=== PATIENT | male | born 1945 | race Caucasian/White ===

== ENCOUNTER → 2017-01-30 | Outpatient (CLI) | payer OTHER ==
[~2017-01-30] MED LIST: AMLO5TAB2 PO; GABA300C10 PO; HYDR25TA6 PO; LOSA50TA6 PO; OXYC-223 PO; OXYC1TAB7 PO; SERT50TA5 PO; TIOT18CA INH; TRAM50TA2 PO
== END | disposition home or self-care (01) ==
LOC: PETCFH 08:08
PROVIDERS: ATTEND Family Medicine
DX: R91.1 Solitary pulmonary nodule (principal)
CPT/HCPCS: 78815; A9552

== ENCOUNTER 2017-05-08 08:52 | Inpatient (IN) | payer OTHER ==
[2017-05-06 09:43] VITALS: BP 157/76
[~2017-05-08] VITALS: Ht 175.3 cm; Wt 70.5 kg
[~2017-05-08 08:52] MED LIST changes: +BUPIVACAINE/PF-EPI 0.5% 1:200K ONE; +CARV6.2512 PO; +CETI10TA18 PO; +CYAN1TAB29 PO
[2017-05-08] MEDS ORDERED: LIDOCAINE 1%, 2ML ONE (09:19)
[2017-05-08] MEDS ORDERED: LACTATED RINGERS 1,000 ML IV SCH (09:37)
[2017-05-08] MEDS ORDERED: LIDOCAINE 1%, 2ML SQ PRN (10:00)
[2017-05-08] MEDS ORDERED: MIDAZOLAM 1 MG/ML, 2ML ONE (10:04)
[2017-05-08] MEDS ORDERED: FENTANYL PF 250 MCG/5ML ONE (10:05)
[2017-05-08] MEDS ORDERED: SUGAMMADEX 200 MG/2 ML IVPush ONE (12:00)
[2017-05-08] MEDS ORDERED: LORazepam 2 MG/ML, 1ML IVPush PRN (13:00)
[2017-05-08] MEDS ORDERED: hydrALAzine 20 MG/ML, 1ML IVPush PRN (13:00)
[2017-05-08] MEDS ORDERED: METOCLOPRAMIDE 5 MG/ML, 2ML IV PRN (13:00)
[2017-05-08] MEDS ORDERED: ONDANSETRON 2MG/ML, 2ML IVPush PRN ×2 (13:00)
[2017-05-08] MEDS ORDERED: DIPHENHYDRAMINE 25 MG CAPSULE PO PRN (13:00)
[2017-05-08] MEDS ORDERED: LABETALOL 5MG/ML, 20ML IV PRN (13:00)
[2017-05-08] MEDS ORDERED: OXYcodone 5 MG/5 ML ORAL.SOL UDC PO PRN (13:00)
[2017-05-08] MEDS ORDERED: DIPHENHYDRAMINE 50 MG/ML, 1ML IVPush PRN (13:00)
[2017-05-08] MEDS ORDERED: ACETAMINOPHEN 650 MG SUPP PR PRN (13:00)
[2017-05-08] MEDS ORDERED: HYDROmorphone 1 MG/ML, 1ML IV PRN (13:00)
[2017-05-08] MEDS ORDERED: LORazepam 0.5MG TABLET PO PRN (13:00)
[2017-05-08] MEDS ORDERED: ENALAPRILAT 1.25 MG/ML, 2ML IVPush PRN (13:00)
[2017-05-08] MEDS ORDERED: ACETAMINOPHEN 325 MG TABLET PO PRN ×2 (13:00)
[2017-05-08] MEDS ORDERED: hydrALAzine 20 MG/ML, 1ML IV PRN (13:00)
[2017-05-08] MEDS ORDERED: FENTANYL PF 100 MCG/2ML ONE (13:02)
[2017-05-08] MEDS ORDERED: KETOROLAC 30 MG/1 ML ONE (13:02)
[2017-05-08] MEDS: KETOROLAC 30 MG/1 ML IVPush PRN ×2 (13:10→19:27)
[2017-05-08] MEDS: FENTANYL PF 100 MCG/2ML IV PRN ×2 (13:17→13:18)
[2017-05-08] MEDS: LACTATED RINGERS 1,000 ML IV SCH (13:30)
[2017-05-08 13:59] VITALS: BP 120/69
[2017-05-08] MEDS ORDERED: FAMOTIDINE 20 MG/2 ML IVPush SCH (14:30)
[2017-05-08] MEDS: CEFAZOLIN PMX 1GM/50ML 50 ML IVPB SCH ×2 (15:38→22:19)
[2017-05-08] MEDS: AMLODIPINE 5 MG TABLET PO SCH (15:40)
[2017-05-08] MEDS: CETIRIZINE 10 MG TABLET PO SCH (15:40)
[2017-05-08] MEDS: IPRATROPIUM 0.5 MG/2.5 ML INHA NPPB SCH ×2 (15:50→20:20)
[2017-05-08] MEDS ORDERED: SUCCINYLCHOLINE 20 MG/ML, 10ML ONE (16:04)
[2017-05-08] MEDS ORDERED: CEFAZOLIN 1,000 MG ONE (16:04)
[2017-05-08] MEDS ORDERED: ROCURONIUM 10 MG/ML ONE (16:04)
[2017-05-08] MEDS ORDERED: GLYCOPYRROLATE 0.2MG/1ML ONE (16:04)
[2017-05-08] MEDS ORDERED: ONDANSETRON 2MG/ML, 2ML ONE (16:04)
[2017-05-08] MEDS ORDERED: EPHEDRINE 50 MG/ML, 1ML ONE (16:04)
[2017-05-08] MEDS ORDERED: PROPOFOL 10 MG/ML, 20ML ONE (16:04)
[2017-05-08] MEDS: LOSARTAN 50MG TABLET PO SCH (22:20)
[2017-05-08] MEDS: CARVEDILOL 6.25 MG TABLET PO SCH (22:20)
[2017-05-08] MEDS: FAMOTIDINE 20 MG TABLET PO SCH (22:20)
[2017-05-09 01:30] VITALS: BP 127/65
[2017-05-09] MEDS: KETOROLAC 30 MG/1 ML IVPush PRN ×2 (01:38→08:52)
[2017-05-09] MEDS: LACTATED RINGERS 1,000 ML IV SCH (01:54)
[2017-05-09] MEDS: IPRATROPIUM 0.5 MG/2.5 ML INHA NPPB SCH (03:30)
[2017-05-09 04:45] LABS: BLOOD UREA NITROGEN 16 mg/dL (7-18)
[2017-05-09] MEDS: CEFAZOLIN PMX 1GM/50ML 50 ML IVPB SCH (04:49)
[2017-05-09 06:52] VITALS: BP 152/80
[2017-05-09] MEDS: LOSARTAN 50MG TABLET PO SCH (08:53)
[2017-05-09] MEDS: CARVEDILOL 6.25 MG TABLET PO SCH (08:53)
[2017-05-09] MEDS: FAMOTIDINE 20 MG TABLET PO SCH (08:53)
[2017-05-09] MEDS: CETIRIZINE 10 MG TABLET PO SCH (08:53)
[2017-05-09] MEDS ORDERED: ENOXAPARIN 40 MG/0.4 ML SQ SCH (09:00)
[2017-05-09] MEDS: AMLODIPINE 5 MG TABLET PO SCH (09:04)
[2017-05-09] MEDS ORDERED: TRAM-28 PO (11:53)
== END 2017-05-09 12:40 | disposition home or self-care (01) | DRG 168 ==
LOC: ORIP 08:52 → EDSTATUS 11:00 → 3NW 13:48 → DCLOUNGE 05-09 11:34
PROVIDERS: ADMIT Thoracic Surgery (Cardiothoracic Vascular Surgery); ATTEND Thoracic Surgery (Cardiothoracic Vascular Surgery)
PROC: 0BBG4ZX Excision of Left Upper Lung Lobe, Percutaneous Endoscopic Approach, Diagnostic (ICD-10-PCS; principal; 2017-05-08 11:30)
DX: C34.12 Malignant neoplasm of upper lobe, left bronchus or lung (principal); J44.9 Chronic obstructive pulmonary disease, unspecified; F17.210 Nicotine dependence, cigarettes, uncomplicated; I10 Essential (primary) hypertension; Z88.6 Allergy status to analgesic agent; Z98.49 Cataract extraction status, unspecified eye; Z82.0 Family history of epilepsy and other diseases of the nervous system; Z82.49 Family history of ischemic heart disease and other diseases of the circulatory system
CPT/HCPCS: 36415; 71010; 80048; 85025; 86850; 86900; 86923; 88309; 94640; C1729; J0690; J1650; J1885; J2250; J2405; J2704; J3010; J3490; J7644; J0330; J7120; S0028

== ENCOUNTER 2018-12-02 18:07 | Emergency (ER) | payer MEDICARE ==
[~2018-12-02] VITALS: Ht 175.3 cm; Wt 82.6 kg
[~2018-12-02 18:07] MED LIST changes: +AMLO-150 PO; -AMLO5TAB2 PO; -BUPIVACAINE/PF-EPI 0.5% 1:200K ONE; +LOSA50TA14 PO; -LOSA50TA6 PO; -OXYC-223 PO; +OXYC-306 PO; +SERT50TA28 PO; -SERT50TA5 PO; +TRAM-47 PO
[2018-12-02 18:15] VITALS: BP 125/85
[2018-12-02] MEDS ORDERED: ALBUTEROL/IPRATROPIUM 2.5MG/0.5MG, 3 ML NPPB ONE (18:30)
[2018-12-02] MEDS ORDERED: SODIUM CHLORIDE FLUSH 10ML SYR IVF ONE (18:30)
[2018-12-02 19:08] LABS: BASOPHILS # (AUTO) 0.09 x10^3/uL (0-0.1); BASOPHILS % (AUTO) 1 % (0-1); EOSINOPHILS # (AUTO) 0.13 x10^3/uL (0-0.4); EOSINOPHILS % (AUTO) 2 % (1-7); LYMPHOCYTES # (AUTO) 2.26 x10^3/uL (1-3.4); LYMPHOCYTES % (AUTO) 33 % (22-44); MD NO; MEAN CORPUSCULAR HEMOGLOBIN 34.6 pg (27.5-34.5); MEAN CORPUSCULAR VOLUME 98.9 fL (81-97); MEAN PLATELET VOLUME 7.6 fL (7.4-10.4); MONOCYTES # (AUTO) 0.51 x10^3/uL (0.2-0.8); MONOCYTES % (AUTO) 7 % (2-9); NEUTROPHILS # (AUTO) 3.92 x10^3/uL (1.8-6.8); NEUTROPHILS % (AUTO) 57 % (42-75); PLATELET COUNT 221 x10^3/uL (130-400); RED BLOOD COUNT 4.37 x10^6/uL (4.38-5.82); RED CELL DISTRIBUTION WIDTH 13.8 % (9.4-14.8)
--- NOTE | 2018-12-02 19:09 | NUR ---
ASSUMED CARE FOR THIS PT. PT MEDICATED ORDERED AND FIRST BREATHING TX GIVEN WITH PT REPORTING IMPROVEMENT.
[2018-12-02 19:14] LABS: ALANINE AMINOTRANSFERASE 25 U/L (12-78); ALBUMIN 3.3 g/dL (3.4-5.0); ANION GAP 13 mmol/L (5-15); CALCIUM 8.6 mg/dL (8.5-10.1); CHLORIDE 108 mmol/L (98-107); CREATININE 0.85 mg/dL (0.7-1.3)
[2018-12-02 19:16] LABS: ALKALINE PHOSPHATASE 55 U/L (45-117); BILIRUBIN,TOTAL 1.1 mg/dL (0.2-1.0); TOTAL PROTEIN 6.3 g/dL (6.4-8.2)
--- NOTE | 2018-12-02 19:56 | NUR ---
PT PLACED ON 2L NC O2 AND IS AWAITING CT SCAN AND RESULTS.
== END 2018-12-02 21:40 | disposition home or self-care (01) ==
LOC: ED 20:45
DX: J44.1 Chronic obstructive pulmonary disease with (acute) exacerbation (principal); R19.7 Diarrhea, unspecified; Z85.46 Personal history of malignant neoplasm of prostate; I10 Essential (primary) hypertension; Z85.51 Personal history of malignant neoplasm of bladder; Z88.6 Allergy status to analgesic agent
CPT/HCPCS: 36415; 71045; 71250; 80053; 85025; 93005; 94640; 94664; 99284; J7512; J7620

== ENCOUNTER 2020-07-12 10:55 | Emergency (ER) | payer MEDICARE ==
[~2020-07-12] VITALS: Ht 167.6 cm; Wt 69.0 kg
--- NOTE | 2020-07-12 10:57 | NUR ---
KEELEY, PT SEEN AT THIS MORNING FOR C/O CHEST DISCOMFORT SINCE 414 THIS AM AND FEELING WEAK, AND WEAKNESS AND HEAVINESS IN LEGS. PT REPORTS HX OF PAD. PLACED ON CARDIAC AND VITALS MONITORS. ER PROVIDER AT BEDSIDE FOR EVAL.
[2020-07-12] MEDS ORDERED: ATOR40TA78 PO (11:17)
[2020-07-12] MEDS ORDERED: SPIR25TA5 PO (11:17)
[2020-07-12] MEDS ORDERED: DOXA4TAB3 PO (11:17)
[2020-07-12] MEDS ORDERED: AMLO5TAB10 PO (11:17)
[2020-07-12] MEDS ORDERED: FLUT1BLS3 PO (11:17)
[2020-07-12] MEDS ORDERED: MELO15TA24 PO (11:17)
[2020-07-12] MEDS ORDERED: CARV12.52 PO (11:17)
--- NOTE | 2020-07-12 11:48 | NUR ---
PT REPORTED SOB WITH ACTIVITY AFTER USING URINAL, SPO2 DROPPED TO 89% RA, PLACED ON 2L NC NOW 96%.
[2020-07-12 11:53] LABS: ALANINE AMINOTRANSFERASE 75 U/L (12-78); ALBUMIN 3.5 g/dL (3.4-5.0); ANION GAP 4 mmol/L (5-15); CALCIUM 8.8 mg/dL (8.5-10.1); CHLORIDE 109 mmol/L (98-107); CREATININE 0.83 mg/dL (0.7-1.3)
[2020-07-12 11:58] LABS: ALKALINE PHOSPHATASE 74 U/L (45-117); BILIRUBIN,TOTAL 0.8 mg/dL (0.2-1.0); TROPONIN I < 0.015 ng/mL (0.000-0.045)
[2020-07-12 11:59] LABS: BASOPHILS # (AUTO) 0.04 x10^3/uL (0-0.1); BASOPHILS % (AUTO) 1 % (0-1); EOSINOPHILS # (AUTO) 0.15 x10^3/uL (0-0.4); EOSINOPHILS % (AUTO) 2 % (1-7); LYMPHOCYTES # (AUTO) 1.23 x10^3/uL (1-3.4); LYMPHOCYTES % (AUTO) 20 % (22-44); MD NO; MEAN CORPUSCULAR HGB CONC 33.2 g/dL (33.2-36.2); MEAN CORPUSCULAR VOLUME 102.2 fL (81-97); MEAN PLATELET VOLUME 8.2 fL (7.4-10.4); MONOCYTES # (AUTO) 0.42 x10^3/uL (0.2-0.8); MONOCYTES % (AUTO) 7 % (2-9); NEUTROPHILS # (AUTO) 4.35 x10^3/uL (1.8-6.8); NEUTROPHILS % (AUTO) 70 % (42-75); PLATELET COUNT 198 x10^3/uL (130-400); RED BLOOD COUNT 4.18 x10^6/uL (4.38-5.82); RED CELL DISTRIBUTION WIDTH 15.2 % (9.4-14.8)
--- NOTE | 2020-07-12 13:11 | NUR ---
PT TRANSPORTED TO CT.
[2020-07-12] MEDS ORDERED: OMNIPAQUE 350 MG/ML, 100ML BOTTLE ONE ×2 (13:31→17:04)
--- NOTE | 2020-07-12 14:30 | NUR ---
PT RESTING ON NAD. SHEKHAR SANCHEZ.
--- NOTE | 2020-07-12 16:11 | NUR ---
BREAK RN: DR GERMAIN AT BEDSIDE.
[2020-07-12] MEDS ORDERED: SODIUM CHLORIDE 0.9%, 500ML IVBOLUS ONE (16:30)
--- NOTE | 2020-07-12 16:40 | NUR ---
PT TRANSPORTED TO CT.
[2020-07-12 17:44] VITALS: BP 165/67
== END 2020-07-12 18:55 | disposition home or self-care (01) ==
LOC: ED 13:07
DX: M62.81 Muscle weakness (generalized) (principal); R53.83 Other fatigue; R94.31 Abnormal electrocardiogram [ECG] [EKG]; E78.5 Hyperlipidemia, unspecified; J44.9 Chronic obstructive pulmonary disease, unspecified; I10 Essential (primary) hypertension; Z85.51 Personal history of malignant neoplasm of bladder
CPT/HCPCS: 36415; 70450; 70496; 70498; 71046; 74174; 80053; 83880; 84484; 85025; 93005; 99285; J7040; Q9967

== ENCOUNTER → 2021-01-17 | Outpatient (CLI) | payer MEDICARE, OTHER ==
[~2021-01-17] MED LIST changes: +AMLO-210 PO; +ATOR40TA78 PO; +CARV12.52 PO; +DOXA4TAB3 PO; +FLUT1BLS3 PO; +MELO15TA24 PO; -OXYC-306 PO; +OXYC1TAB17 PO; +SPIR25TA5 PO
== END | disposition home or self-care (01) ==
LOC: CFH 10:16
PROVIDERS: ATTEND Registered Nurse
DX: R91.8 Other nonspecific abnormal finding of lung field (principal); I25.10 Atherosclerotic heart disease of native coronary artery without angina pectoris
CPT/HCPCS: 71250

== ENCOUNTER → 2021-02-22 | Outpatient (CLI) | payer MEDICARE | END | disposition home or self-care (01) | LOC: PETCFH 07:37 | PROVIDERS: ATTEND Thoracic Surgery (Cardiothoracic Vascular Surgery) | DX: R91.1 Solitary pulmonary nodule (principal); D38.1 Neoplasm of uncertain behavior of trachea, bronchus and lung; K57.30 Diverticulosis of large intestine without perforation or abscess without bleeding; K44.9 Diaphragmatic hernia without obstruction or gangrene | CPT/HCPCS: 78815; A9552 ==

== ENCOUNTER → 2021-04-14 | Outpatient (CLI) | payer MEDICARE | END | disposition home or self-care (01) | LOC: STAR 08:09 | PROVIDERS: ATTEND Anesthesiology | DX: Z01.818 Encounter for other preprocedural examination (principal); Z01.89 Encounter for other specified special examinations; Z01.812 Encounter for preprocedural laboratory examination; R79.1 Abnormal coagulation profile | CPT/HCPCS: 93005 ==

== ENCOUNTER → 2021-05-18 | Outpatient (CLI) | payer MEDICARE ==
[~2021-05-18] MED LIST changes: +ALBU8.5H8 INH; +ASPI-1026 PO
[2021-05-18 11:26] LABS: BASOPHILS % (AUTO) 1 % (0-1); EOSINOPHILS % (AUTO) 2 % (1-7); LYMPHOCYTES % (AUTO) 25 % (22-44); MEAN CORPUSCULAR HEMOGLOBIN 36.4 pg (27.5-34.5); MEAN CORPUSCULAR HGB CONC 34.8 g/dL (33.2-36.2); MEAN PLATELET VOLUME 8.2 fL (7.4-10.4); MONOCYTES % (AUTO) 13 % (2-9); NEUTROPHILS % (AUTO) 59 % (42-75); PLATELET COUNT 177 x10^3/uL (130-400); RED BLOOD COUNT 3.54 x10^6/uL (4.38-5.82); RED CELL DISTRIBUTION WIDTH 13.2 % (9.4-14.8)
[2021-05-18 12:17] LABS: ALBUMIN 3.3 g/dL (3.4-5.0); ANION GAP 3 mmol/L (5-15); CALCIUM 8.9 mg/dL (8.5-10.1); CHLORIDE 106 mmol/L (98-107)
[2021-05-18 12:21] LABS: ALANINE AMINOTRANSFERASE 20 U/L (12-78); ALKALINE PHOSPHATASE 72 U/L (45-117); BILIRUBIN,TOTAL 0.5 mg/dL (0.2-1.0); CREATININE 1.17 mg/dL (0.7-1.3); TOTAL PROTEIN 6.8 g/dL (6.4-8.2)
== END | disposition home or self-care (01) ==
LOC: STAR 09:31
PROVIDERS: ATTEND Thoracic Surgery (Cardiothoracic Vascular Surgery)
DX: Z01.818 Encounter for other preprocedural examination (principal)
CPT/HCPCS: 36415; 80053; 85025; 93005